=== PATIENT | female | born 1935 | race Caucasian/White ===

== ENCOUNTER 2025-04-18 07:54 | Emergency (ER) | payer MEDICARE ==
[~2025-04-18] VITALS: Ht 162.6 cm; Wt 54.5 kg
[2025-04-18 08:09] VITALS: TEMP 98.1
[2025-04-18] MEDS: BACITRACIN 0.9 GM PACKET OINTMENT TP ONE (08:48)
[2025-04-18 09:09] LABS: PLATELET COUNT (AUTO) 191 K/uL (150-450); RED BLOOD CELL COUNT(AUTO) 4.46 MIL/uL (4.00-5.20); RED CELL DISTRIBUTION WIDTH 13.6 % (11.5-14.5); WHITE BLOOD COUNT (AUTO) 7.6 K/uL (4.5-11.0)
[2025-04-18 09:12] LABS: CALCIUM, TOTAL 9.0 mg/dL (8.8-10.5); CREATININE 0.74 mg/dL (0.60-1.30); GLOMERULAR FILTR. RATE CALC > 60 mL/min (>60); GLUCOSE,RANDOM 95 mg/dL (70-110); SODIUM SERUM 143 mmol/L (136-145); UREA NITROGEN, BLOOD 22 mg/dL (7-18)
[2025-04-18 09:21] LABS: TROPONIN I-HIGH SENSITIVITY 12 ng/L (<51)
[2025-04-18] MEDS ORDERED: BACI28.410 TP (09:38)
[2025-04-18 11:45] VITALS: BP 168/87; PULSE 66; RESP 16; O2SAT 100
== END 2025-04-18 11:47 | disposition home or self-care (01) ==
LOC: EMS 07:56
DX: S51.812A Laceration without foreign body of left forearm, initial encounter (principal); F03.90 Unspecified dementia, unspecified severity, without behavioral disturbance, psychotic disturbance, mood disturbance, and anxiety; W19.XXXA Unspecified fall, initial encounter; Y93.89 Activity, other specified; Y92.89 Other specified places as the place of occurrence of the external cause; Y99.8 Other external cause status
CPT/HCPCS: 80048; 84484; 85025; 97597; 99283